=== PATIENT | male | born 1965 | race Caucasian/White ===

== ENCOUNTER 2020-12-30 11:21 | Emergency (ER) | payer OTHER ==
[~2020-12-30] VITALS: Ht 175.3 cm; Wt 100.7 kg
[~2020-12-30 11:21] MED LIST: CARDIZEM CD180 MG PO; FLOMAX PO; FLOMAX0.4 MG PO; HYDROXYZINE HCL25 M1 PO; NORCO 5-325 TA1 EACH PO; PRILOSEC 20 MG20 MG PO; SIMVASTATIN20 MG PO; ZOFRAN ODT4 MG PO; ZOFRAN4 MG PO
[2020-12-30] MEDS ORDERED: ZOCOR 20 MG TAB20 M1 PO (11:29)
[2020-12-30] MEDS ORDERED: FLECAINIDE ACET50 M2 PO (11:29)
[2020-12-30] MEDS ORDERED: SINGULAIR 10 MG10 MG PO (11:29)
[2020-12-30] MEDS ORDERED: KEFLEX250 MG PO (11:30)
[2020-12-30 14:34] LABS: HEMATOCRIT 45.2 % (42.0-52.0); HEMOGLOBIN 15.5 gm/dL (14.0-18.0); MCH 30.4 pg (26.0-34.0); MCHC 34.2 g/dL (28.0-37.0); MCV 88.7 fL (80.0-100.0); MPV 7.3 fl. (7.2-11.1); NUCLEATED RBCS 0 /100WBC; PLATELET COUNT* 178 thou/uL (150-400); RDW-CV 14.3 % (10.5-14.5); WBC 7.1 thou/uL (4.0-11.0)
[2020-12-30 14:42] LABS: CALCIUM 9.1 mg/dL (8.5-10.1)
[2020-12-30 14:47] LABS: ALBUMIN 3.1 g/dL (3.4-5.0); TOTAL BILIRUBIN 0.5 mg/dL (<0.1-1.0); TOTAL PROTEIN 8.4 g/dL (6.4-8.2)
[2020-12-30 15:23] LABS: ABSOLUTE LYMPHOCYTES 0.4 thou/uL (0.8-5.3); ABSOLUTE MONOCYTES 0.1 thou/uL (0.0-1.2); ABSOLUTE NEUTROPHILS 6.5 thou/uL (1.6-8.1)
[2020-12-30 15:24] LABS: PLATELET ESTIMATE ADEQUATE
[2020-12-30] MEDS ORDERED: PREDNISONE 20 M20 MG PO (15:30)
[2020-12-30] MEDS ORDERED: IPRAT-ALBUT 0.5-3 ML INH (15:30)
[2020-12-30] MEDS ORDERED: DOXYCYCLINE 10100 MG PO (15:30)
[2020-12-30] MEDS ORDERED: PROAIR HFA8.5 GM INH (15:30)
[2020-12-30 15:45] VITALS: BP 131/70
[2020-12-30] MEDS ORDERED: ONDANSETRON HCL4 M2 PO (16:21)
--- NOTE | 2020-12-31 10:56 | EKG ---
[place] [address] ELECTROCARDIOGRAM REPORT Name: SOFÍA UREÑA Room: [facility]#: [id number] Admission: 12/30/20 Attend Phys: Discharge: 12/30/20 Date of : 65 Date of Service: 12/30/20 1514 Report #: [id number] THIS REPORT FOR: //name// [facility] ED Test Date: 2020-12-30 Test Time: 15:14:53 Pat Name: SOFÍA UREÑA Department: Room: Gender: Special Education Professional: [facility] : 1965 Requested By: Arik Purdy Order Number: [id number] MD: Triston Adams Measurements Intervals [place] Rate: 108 P: 52 IL: 145 QRS: 6 QRSD: 92 T: 52 QT: 326 QTc: 437 Interpretive Statements Sinus tachycardia Abnormal R-wave progression, early transition No previous ECG available for comparison Electronically Signed On 12-31-2020 10:56:09 CDT by Triston Adams [email or web address] <ELECTRONICALLY SIGNED> By: Triston Adams MD, [facility] 12/31/20 1056 1514 1514 Triston Adams MD, FAC /EPI
== END 2020-12-30 15:46 | disposition home or self-care (01) ==
LOC: M.ERS 11:21
PROVIDERS: Physician Assistant
DX: U07.1 COVID-19 (principal); J12.89 Other viral pneumonia; I10 Essential (primary) hypertension; K21.9 Gastro-esophageal reflux disease without esophagitis; Z87.442 Personal history of urinary calculi; Z79.899 Other long term (current) drug therapy

== ENCOUNTER 2021-01-01 03:58 | Inpatient (IN) | payer OTHER ==
[~2021-01-01] VITALS: Ht 175.3 cm; Wt 97.1 kg
[~2021-01-01 03:58] MED LIST changes: +DOXYCYCLINE 10100 MG PO; +FLECAINIDE ACET50 M2 PO; +IPRAT-ALBUT 0.5-3 ML INH; +KEFLEX250 MG PO; +ONDANSETRON HCL4 M2 PO; +PREDNISONE 20 M20 MG PO; +PROAIR HFA8.5 GM INH; +SINGULAIR 10 MG10 MG PO; +ZOCOR 20 MG TAB20 M1 PO
[2021-01-01 04:09] VITALS: BP 144/89
[2021-01-01 04:58] LABS: ABSOLUTE MONOCYTES 0.8 thou/uL (0.0-1.2); ABSOLUTE NEUTROPHILS 9.9 thou/uL (1.6-8.1); BASOPHILS 0.2 %; HEMATOCRIT 42.9 % (42.0-52.0); HEMOGLOBIN 14.5 gm/dL (14.0-18.0); LYMPHOCYTES 8.9 %; MCH 29.7 pg (26.0-34.0); MCHC 33.9 g/dL (28.0-37.0); MCV 87.5 fL (80.0-100.0); MONOCYTES 6.6 %; MPV 7.1 fl. (7.2-11.1); NUCLEATED RBCS 0 /100WBC; POLYS 84.3 %; RDW-CV 14.2 % (10.5-14.5); WBC 11.7 thou/uL (4.0-11.0)
[2021-01-01 05:05] LABS: PLATELET COUNT* 269 thou/uL (150-400)
[2021-01-01 05:08] LABS: CALCIUM 9.4 mg/dL (8.5-10.1); CREATININE 1.3 mg/dL (0.6-1.3); POTASSIUM 3.8 mmol/L (3.5-5.1)
[2021-01-01 05:19] LABS: ALBUMIN 3.1 g/dL (3.4-5.0); MAGNESIUM 2.6 mg/dL (1.8-2.4); TOTAL BILIRUBIN 0.5 mg/dL (<0.1-1.0); TOTAL PROTEIN 8.1 g/dL (6.4-8.2)
[2021-01-01 09:28] VITALS: BP 121/80
[2021-01-01 13:37] VITALS: BP 141/74
[2021-01-01 17:40] VITALS: BP 126/84
[2021-01-01 18:14] VITALS: BP 126/84
--- NOTE | 2021-01-01 18:30 | NUR ---
er admit to rm 106 via cart to bed sba patient settled in bed patient oriented to rm and call light patient denies pain
[2021-01-01 20:00] VITALS: BP 135/84
[2021-01-01] MEDS ORDERED: CENTRUM SILVER1 EAC5 PO (21:11)
[2021-01-01] MEDS ORDERED: ADULT ASPIRIN R81 MG PO (21:12)
[2021-01-01] MEDS ORDERED: PROTONIX40 M4 PO (21:13)
[2021-01-01] MEDS ORDERED: ZESTRIL10 MG PO (21:14)
[2021-01-01] MEDS ORDERED: DILTIAZEM ER180 M2 PO (21:15)
[2021-01-02 00:33] VITALS: BP 119/69
[2021-01-02 04:26] VITALS: BP 116/57
--- NOTE | 2021-01-02 05:56 | NUR ---
ASSUMED CARE OF PT AFTER REPORT AT 1930. PT A&OX4. VSS. ADMISSION HISTORY & PHYSICAL ASSESSMENT COMPLETED AND CHARTED. ORIENTED TO ROOM & CALL LIGHT. PT ON NC 11L. PT TRACING SR/ST ON TELE. PT UPSTANDBY. PT COMPLAINED OF NAUSEA-MED GIVEN PER MAR. CALL LIGHT WITHIN REACH.
[2021-01-02 06:59] LABS: HEMATOCRIT 38.5 % (42.0-52.0); HEMOGLOBIN 13.4 gm/dL (14.0-18.0); MCH 30.5 pg (26.0-34.0); MCHC 34.9 g/dL (28.0-37.0); MCV 87.5 fL (80.0-100.0); MPV 7.1 fl. (7.2-11.1); RBC 4.4 mil/uL (4.50-6.00); RDW-CV 14.4 % (10.5-14.5); WBC 10.6 thou/uL (4.0-11.0)
[2021-01-02 07:13] LABS: CALCIUM 8.9 mg/dL (8.5-10.1); POTASSIUM 4.2 mmol/L (3.5-5.1)
[2021-01-02 08:00] VITALS: BP 133/85
--- NOTE | 2021-01-02 09:57 | EKG ---
[place] [address] ELECTROCARDIOGRAM REPORT Name: SOFÍA UREÑA Room: [address] ADM IN .R.#: [id number] Admission: 01/01/21 Attend Phys: Irma Be, Discharge: Date of : 65 Date of Service: 01/01/21 0421 Report #: [id number] THIS REPORT FOR: //name// [facility] ED Test Date: 2021-01-01 Test Time: 04:21:14 Pat Name: SOFÍA UREÑA Department: Room: [facility] Gender: M Management Liaison: MR : 1965 Requested By: Julianne Fung Order Number: [id number] MD: Sofía Lindquist Measurements Intervals [place] Rate: 115 P: 51 AL: 146 QRS: -6 QRSD: 93 T: 67 QT: 306 QTc: 424 Interpretive Statements Sinus tachycardia Abnormal R-wave progression, early transition Inferior infarct, old Compared to ECG 12/30/2020 15:14:53 no change Electronically Signed On 01-02-2021 9:56:52 CDT by Sofía Lindquist [email or web address] <ELECTRONICALLY SIGNED> By: Sofía Lindquist MD, [facility] 01/02/21 0956 042 0421 Sofía Lindquist MD, [facility] /EPI
[2021-01-02 13:03] VITALS: BP 110/76
[2021-01-02 16:00] VITALS: BP 116/81
[2021-01-02 20:00] VITALS: BP 120/75
[2021-01-03] VITALS (7 sets, daily range): BP systolic 96–144; BP diastolic 63–88
--- NOTE | 2021-01-03 05:23 | NUR ---
ASSUMED CARE OF PT AFTER REPORT AT 1930. PT A&OX4. VSS. PHYSICAL ASSESSMENT COMPLETED AND CHARTED. PT ON HFNC 10L. PT TRACING SR/ST ON TELE. PT UPSTANDBY TO BSC. PT DENIES ANY PAIN. PT ABLE TO SLEEP WELL ON BED. FALL PRECAUTIONS IN PLACE. CALL LIGHT WITHIN REACH.
[2021-01-03 05:37] LABS: ABSOLUTE LYMPHOCYTES 0.7 thou/uL (0.8-5.3); ABSOLUTE MONOCYTES 0.3 thou/uL (0.0-1.2); ABSOLUTE NEUTROPHILS 4.1 thou/uL (1.6-8.1); BASOPHILS 0.3 %; HEMATOCRIT 38.6 % (42.0-52.0); HEMOGLOBIN 12.9 gm/dL (14.0-18.0); LYMPHOCYTES 14.1 %; MCH 29.3 pg (26.0-34.0); MCHC 33.3 g/dL (28.0-37.0); MONOCYTES 5.9 %; MPV 7.4 fl. (7.2-11.1); NUCLEATED RBCS 0 /100WBC; PLATELET COUNT* 221 thou/uL (150-400); POLYS 79.7 %; RBC 4.39 mil/uL (4.50-6.00); RDW-CV 14.3 % (10.5-14.5); WBC 5.2 thou/uL (4.0-11.0)
[2021-01-03 06:14] LABS: ALBUMIN 2.3 g/dL (3.4-5.0); CREATININE 0.8 mg/dL (0.6-1.3); POTASSIUM 4.1 mmol/L (3.5-5.1); TOTAL BILIRUBIN 0.4 mg/dL (<0.1-1.0); TOTAL PROTEIN 6.8 g/dL (6.4-8.2)
--- NOTE | 2021-01-03 15:10 | NUR ---
CM ASSESSMENT: PT COVID POSITIVE AND CURRENTLY UNDER ENHANCED PRECAUTIONS. PT A&O, INDEPENDENT WITH ADL'S, ACTIVE AND WORKS OUTSIDE THE HOME. PT RESIDES AT HOME WITH SPOUSE. PT USES 0 DME. PT HAS 0 HX OF HH OR SNF. PT CURRENTLY ON 10L O2, AND DID NOT HAVE HOME OXYGEN PRIOR TO ADMIT. CM WILL REMAIN AVAILABLE TO ASSIST AND FOLLOW NEEDED.
--- NOTE | 2021-01-03 19:00 | NUR ---
Pt inquired about convalescent plasma atend of shift; states he did not fully understand what Dr. Hernandez said to him regarding plasma (risks, benefits, etc.). After further discussion, pt has decided to receive convalescent plasma as ordered; blood bank notified. VSS. Abd round, distended. Surgery consult called per Dr. Hernandez's order; Dr. Roman returned call and states he will see pt. New IVs placed per tasneem Hartley RN. O2 remains at 10L per [facility]; sats 88-92%. Will continue to monitor.
[2021-01-04 00:15] VITALS: BP 130/85
[2021-01-04 04:24] LABS: HEMATOCRIT 39.9 % (42.0-52.0); HEMOGLOBIN 13.5 gm/dL (14.0-18.0); MCH 29.6 pg (26.0-34.0); MCHC 33.7 g/dL (28.0-37.0); MCV 87.6 fL (80.0-100.0); MPV 7.3 fl. (7.2-11.1); NUCLEATED RBCS 0 /100WBC; PLATELET COUNT* 257 thou/uL (150-400); RBC 4.56 mil/uL (4.50-6.00); RDW-CV 14.1 % (10.5-14.5); WBC 5.1 thou/uL (4.0-11.0)
[2021-01-04 04:26] LABS: ALBUMIN 2.6 g/dL (3.4-5.0); CALCIUM 9.1 mg/dL (8.5-10.1); CREATININE 0.9 mg/dL (0.6-1.3); PHOSPHORUS* 4.8 mg/dL (2.5-4.9); POTASSIUM 4.3 mmol/L (3.5-5.1); TOTAL BILIRUBIN 0.3 mg/dL (<0.1-1.0); TOTAL PROTEIN 7.2 g/dL (6.4-8.2)
--- NOTE | 2021-01-04 04:48 | NUR ---
ASSUMED CARE OF PT AFTER REPORT AT 1930. PT A&OX4. VSS. PHYSICAL ASSESSMENT COMPLETED AND CHARTED. PT ON O2 HFNC 9L. PT TRACING SR/ST ON TELE. PT UPSTANDBY TO BSC. PT DENIES ANY PAIN. TRANSFUSED 1 UNIT OF PLASMA. MRSA SWAB SENT TO LAB. PT ABLE TO SLEEP WELL ON BED. FALL PRECAUTIONS IN PLACE. CALL LIGHT WITHNI REACH.
[2021-01-04 04:55] VITALS: BP 121/66
[2021-01-04 06:53] LABS: ABSOLUTE LYMPHOCYTES 0.1 thou/uL (0.8-5.3); ABSOLUTE MONOCYTES 0.1 thou/uL (0.0-1.2); ABSOLUTE NEUTROPHILS 4.9 thou/uL (1.6-8.1); PLATELET ESTIMATE ADEQUATE
[2021-01-04 08:00] VITALS: BP 123/72
[2021-01-04 17:04] VITALS: BP 139/66
[2021-01-04 18:47] VITALS: BP 110/77
[2021-01-04 19:50] VITALS: BP 125/80
--- NOTE | 2021-01-04 23:41 | NUR ---
ASSUMED CARE OF PT AT 1900. PT IS ALERT AND ORIENTED. VSS. PERRLA. NO COMPLAINTS OF PAIN. PT IS ON 10 LITERS OF O2. PT IS IN SINUS RYTHM ON THE TELEMETRY. PT IS RESTING COMFORTABLY IN BED. RESPIRATIONS ARE EVEN AND NONLABORED. WILL CONTINUE TO MONITOR PT.
[2021-01-05 00:41] VITALS: BP 103/81; BP 122/71
[2021-01-05 05:32] VITALS: BP 113/59
[2021-01-05 07:01] LABS: ABSOLUTE LYMPHOCYTES 1.3 thou/uL (0.8-5.3); ABSOLUTE MONOCYTES 0.5 thou/uL (0.0-1.2); ABSOLUTE NEUTROPHILS 5.3 thou/uL (1.6-8.1); BASOPHILS 0.2 %; EOSINOPHILS 0.3 %; HEMATOCRIT 41.1 % (42.0-52.0); HEMOGLOBIN 13.8 gm/dL (14.0-18.0); LYMPHOCYTES 18.2 %; MCH 29.8 pg (26.0-34.0); MCHC 33.6 g/dL (28.0-37.0); MCV 88.6 fL (80.0-100.0); MONOCYTES 6.5 %; MPV 7.2 fl. (7.2-11.1); NUCLEATED RBCS 0 /100WBC; PLATELET COUNT* 324 thou/uL (150-400); POLYS 74.8 %; RBC 4.64 mil/uL (4.50-6.00); RDW-CV 14.3 % (10.5-14.5)
[2021-01-05 07:20] LABS: ALBUMIN 2.9 g/dL (3.4-5.0); POTASSIUM 3.7 mmol/L (3.5-5.1); TOTAL BILIRUBIN 0.4 mg/dL (<0.1-1.0); TOTAL PROTEIN 7.2 g/dL (6.4-8.2)
[2021-01-05 09:39] VITALS: BP 103/61
[2021-01-05 12:00] VITALS: BP 108/64
--- NOTE | 2021-01-05 14:49 | NUR ---
PLAN OF CARE: PHYSICIAN INFORMS OF PLAN FOR THE PT TO REMAIN INPT AT THIS TIME. PT COVID POSITIVE AND REMAINS UNDER ENHANCED PRECAUTIONS. PT REMAINS ON 10L O2, AND MAY NEED HOME O2 AT D/C. CM WILL REMAIN AVAILABLE TO ASSIST AND FOLLOW NEEDED.
[2021-01-05 16:17] VITALS: BP 109/67
--- NOTE | 2021-01-05 18:26 | NUR ---
PT A&OX4, HR SR-ST, ON 10 L NC, PT HAS NO C/O PAIN OR DISCOMFORT AND CONTINUES IV ABT.
[2021-01-05 19:50] VITALS: BP 126/63
--- NOTE | 2021-01-05 22:32 | CON ---
[address] [address] CONSULTATION Name: SOFÍA UREÑA Room: [address] IN .R.#: [id number] Admission: 01/01/21 Attend Phys: Irma Be MD Discharge: Date of : 65 Report #: [id number] THIS REPORT FOR: cc: Robert Fernando Bradley L. DO Pervez, Adeel MD ~ DATE OF CONSULTATION: 01/03/2021 REQUESTING PHYSICIAN: Gerry Lowry DO INDICATION FOR CONSULTATION: Acute hypoxemic respiratory failure secondary to COVID-19. HISTORY OF PRESENT ILLNESS: A 55-year-old gentleman with past medical history is as mentioned below. There is no known history of smoking, cardiac or respiratory disease. He does have GERD. He also has a body mass index elevated to 32. He has not been vaccinated for COVID-19. The patient was now diagnosed with COVID-19 on 12/24. He did come to the Emergency Room earlier and at that time was sent home for outpatient followup. He continued to decline and therefore, eventually was admitted on 01/01. He did take a veterinary ivermectin prior to arrival. He currently is requiring around 10 liters of oxygen to maintain O2 saturation in the low 90s. His chest x-ray does show worsening infiltrates. The patient states that his shortness of breath is about the same as when he initially arrived, but he does continue to have significant shortness of breath at rest. He does have a cough. There is not much sputum. He does not have upper respiratory complaints. There is only minimal swelling of lower extremities. There is no calf pain. The patient answers to the negative for 12 questions for review of systems except as described above. He has had some distention of his abdomen. PAST MEDICAL HISTORY: Obesity, hypertension, gastroesophageal reflux disease, hyperlipidemia, and kidney stones. The patient has used flecainide in the past. It is not known to me why the patient received flecainide. SOCIAL HISTORY: Lifetime nonsmoker. No known history of heavy alcohol use or illegal drug use. CURRENT MEDICATIONS: List in [employer] reviewed. HOME MEDICATIONS: List also in [employer] reviewed. Amongst other medications it is noted that the patient received prednisone for a few days as well as a prescription for doxycycline. During the last ER visit, the patient in the past has used flecainide. It is not known to me why he was prescribed flecainide. FAMILY HISTORY: There [place] [address] CONSULTATION Name: SOFÍA UREÑA Room: [address]#: [id number] Admission: 01/01/21 Attend Phys: Irma Be MD Discharge: Date of : 65 Report #: [id number] PHYSICAL EXAMINATION: GENERAL: Alert, awake, and oriented, does not appear in any distress at this time. He is hypoxemic. He is requiring 10 liters of oxygen to maintain O2 saturation in the low 90s. He is tachycardic. VITAL SIGNS: Heart rate is around 113, blood pressure 123/86. He is saturating 92%. He is afebrile with a temperature of 36.7. HEENT: Head is normocephalic and atraumatic. NECK: Does not show raised JVP asymmetry, mass, or lymph nodes. CHEST: Symmetrical expansion on inspection and palpation. On auscultation, breath sounds are bilaterally equal, but decreased. No added sounds. HEART: Regular. There is no murmur. ABDOMEN: Distended, but nontender. EXTREMITIES: Lower extremities show no edema, no calf tenderness. SKIN: Dry and intact. NEUROLOGIC: Moves all extremities bilaterally equally and spontaneously with no focal deficit identified. IMAGING STUDIES: The patient's chest x-ray was reviewed. There are worsening infiltrates on chest x-rays when seen serially. Also, there are markedly distended loops of bowel, which are incidentally identified. His D-dimer was not elevated. Lab work in [employer] reviewed. His COVID-19 antigen is positive. ASSESSMENT AND PLAN: 1. Acute hypoxemic respiratory failure secondary to COVID-19. Continue to titrate oxygen. Recommend avoiding supine position while asleep. If it is feasible for him, then may prone. Continue out of bed to chair. 2. COVID-19. His bowel loops are significantly distended and I would like to get this investigated further. Pending this, I would switch his dexamethasone over to IV as I am not certain if oral dexamethasone is adequately being observed. We will give him an additional dose of 10 mg of dexamethasone IV once as well. For now, we will continue current dose of dexamethasone at 6 mg. If he becomes more hypoxemic, then certainly we can increase the dose. He is on remdesivir. I agree with the same. Follow LFTs. He received Actemra as well. I discussed with him risks and benefits of administration of convalescent plasma. He stated that he will discuss with his . I did leave an order to go ahead and transfuse with one unit if he does agree and in that case, I may consider a second unit tomorrow as well. 3. Abdominal distention/distended loops of bowel. These are markedly abnormal on the x-ray of the chest. I ordered x-ray of the abdomen. We will go ahead and obtain a surgery opinion as well. The patient may have a severe ileus or intestinal obstruction. 4. Bronchospasm. Discussion regarding dexamethasone as above. He is also on nebulized bronchodilators. [place] [address] CONSULTATION Name: SOFÍA UREÑA Room: [address]#: [id number] Admission: 01/01/21 Attend Phys: Irma Be MD Discharge: Date of : 65 Report #: [id number] 5. Pulmonary infiltrates. Considering worsening infiltrates. I will go ahead and cover with a broad-spectrum antibiotic. We will do more cultures and serologies as well. I initially ordered Levaquin, but assisted over to ceftriaxone because I noticed he has received flecainide in the past. I will investigate further while he received flecainide at some point in the past. 6. Deep venous thrombosis prophylaxis. Continue Lovenox. I increased the dose to 40 b.i.d. 7. Gastrointestinal prophylaxis, on Protonix. 8. Clostridium difficile prophylaxis, on Lactinex. The patient is critically ill with acute hypoxemic respiratory failure secondary to COVID-19. Total time spent providing critical care to this patient today is 39 minutes. <ELECTRONICALLY SIGNED> By: Reggie Hernandez MD 01/05/21 2232 1601 [id number] nicol Savage
--- NOTE | 2021-01-06 00:16 | NUR ---
ASSUMED CARE OF PT AT 1900. PT IS ALERT AND ORIENTED. VSS. PERRLA. NO COMPLAINTS OF PAIN. PT IS ON 10 LITERS NASAL CANNULA. PT IS IN SINUS RYTHM ON THE TELEMETRY. PT IS RESTING COMFORTABLY IN BED. RESPIRATIONS ARE EVEN AND NONLABORED. WILL CONTINUE TO MONITOR PT.
[2021-01-06 00:30] VITALS: BP 110/66
[2021-01-06 04:29] VITALS: BP 114/60
[2021-01-06 05:43] LABS: ABSOLUTE BASOPHILS 0.1 thou/uL (0.0-0.2); ABSOLUTE LYMPHOCYTES 1.1 thou/uL (0.8-5.3); ABSOLUTE MONOCYTES 0.4 thou/uL (0.0-1.2); ABSOLUTE NEUTROPHILS 5.3 thou/uL (1.6-8.1); BASOPHILS 0.8 %; EOSINOPHILS 0.2 %; HEMATOCRIT 39.2 % (42.0-52.0); HEMOGLOBIN 13.2 gm/dL (14.0-18.0); LYMPHOCYTES 16.3 %; MCH 29.9 pg (26.0-34.0); MCHC 33.7 g/dL (28.0-37.0); MCV 88.9 fL (80.0-100.0); MONOCYTES 6.4 %; MPV 7.4 fl. (7.2-11.1); NUCLEATED RBCS 0 /100WBC; PLATELET COUNT* 277 thou/uL (150-400); POLYS 76.3 %; RBC 4.42 mil/uL (4.50-6.00); RDW-CV 13.9 % (10.5-14.5); WBC 6.9 thou/uL (4.0-11.0)
[2021-01-06 06:17] LABS: ALBUMIN 2.6 g/dL (3.4-5.0); CALCIUM 8.7 mg/dL (8.5-10.1); CREATININE 0.8 mg/dL (0.6-1.3); POTASSIUM 4.1 mmol/L (3.5-5.1); TOTAL BILIRUBIN 0.3 mg/dL (<0.1-1.0); TOTAL PROTEIN 6.6 g/dL (6.4-8.2)
--- NOTE | 2021-01-06 07:40 | NUR ---
CHANGE OF SHIFT REPORT GIVEN PATIENT SIITING UP IN RECLINER WATCHING TV ASSUMED PATIENT CARE
[2021-01-06 08:00] VITALS: BP 104/64
[2021-01-06 11:47] VITALS: BP 107/70
[2021-01-06 15:48] LABS: BE 2.9 mmol/L (-2 to +3); PCO2 VENOUS 52.6 mmHg (41.0-51.0); PO2 VENOUS 38.5 mmHg (35.0-45.0)
[2021-01-06 16:22] VITALS: BP 111/72
[2021-01-06 20:00] VITALS: BP 109/60
[2021-01-07 00:35] VITALS: BP 110/73
--- NOTE | 2021-01-07 04:19 | NUR ---
ASSUMED CARE OF PT AFTER REPORT AT 1930. PT A&OX4. VSS. PHYSICAL ASSESSMENT COMPLETED AND CHARTED. PT ON HFNC 7L. PT TRACING SR ON TELE. PT UPSTANDBY. PT DENIES ANY PAIN. DECREASED O2 TO 7L HFNC-O2 SAT AT 91-93%. RECOMMENDS TO SLEEP ON HIS SIDES. PT ABLE TO SLEEP WELL ON BED. FALL PRECAUTIONS IN PLACE. CALL LIGHT WITHIN REACH.
[2021-01-07 05:18] LABS: ALBUMIN 2.6 g/dL (3.4-5.0); CALCIUM 8.8 mg/dL (8.5-10.1); CREATININE 0.9 mg/dL (0.6-1.3); POTASSIUM 4.8 mmol/L (3.5-5.1); TOTAL BILIRUBIN 0.4 mg/dL (<0.1-1.0); TOTAL PROTEIN 6.3 g/dL (6.4-8.2)
[2021-01-07 06:02] VITALS: BP 132/81
[2021-01-07 06:34] LABS: ABSOLUTE BASOPHILS 0.1 thou/uL (0.0-0.2); ABSOLUTE MONOCYTES 0.3 thou/uL (0.0-1.2); EOSINOPHILS 0.1 %; HEMOGLOBIN 13.1 gm/dL (14.0-18.0); MCV 88.9 fL (80.0-100.0); PLATELET COUNT* 258 thou/uL (150-400); WBC 13.3 thou/uL (4.0-11.0)
[2021-01-07 06:36] LABS: ABSOLUTE NEUTROPHILS 11.9 thou/uL (1.6-8.1); BASOPHILS 0.7 %; HEMATOCRIT 39.4 % (42.0-52.0); LYMPHOCYTES 7.3 %; MCH 29.5 pg (26.0-34.0); MCHC 33.2 g/dL (28.0-37.0); MPV 8.2 fl. (7.2-11.1); NUCLEATED RBCS 0 /100WBC; POLYS 89.9 %; RBC 4.43 mil/uL (4.50-6.00); RDW-CV 13.8 % (10.5-14.5)
[2021-01-07 08:00] VITALS: BP 100/59
[2021-01-07 12:12] VITALS: BP 124/72
[2021-01-07 15:59] VITALS: BP 116/75
--- NOTE | 2021-01-07 18:50 | NUR ---
RECEIVED REPORT AROUND 0715. ASSUMED CARE. VS AND ASSESSMENT CHARTED. IV INTACT. HEART MONITOR ATTACHED AT SR. MEDS GIVEN PER AUG. HOURLY ROUNDING PERFORMED. 5L NC. PT IN CHAIR NOW. NO PAIN THIS SHIFT. CALL LIGHT WITH IN REACH. WILL CONTINUE TO MONITOR.
[2021-01-07 20:00] VITALS: BP 98/63
[2021-01-08 00:27] VITALS: BP 106/52
[2021-01-08 04:26] VITALS: BP 118/73
--- NOTE | 2021-01-08 05:42 | NUR ---
ASSUMED CARE OF PT AFTER REPORT AT 1930. PT A&OX4. VSS. PHYSICAL ASSESSMENT COMPLETED AND CHARTED. PT ON O2 AT 3LNC. PT TRACING SR ON TELE. PT UPSTANDBY. PT DENIES ANY PAIN. PT ABLE TO SLEEP WELL ON BED. FALL PRECAUTIONS IN PLACE. CALL LIGHT WITHIN REACH.
[2021-01-08 08:00] VITALS: BP 107/53
[2021-01-08 12:58] VITALS: BP 111/67
[2021-01-08 16:12] VITALS: BP 113/75
--- NOTE | 2021-01-08 19:20 | NUR ---
RECEIVED REPORT AROUND 0715. ASSUMED CARE. VS AND ASSESSMENT CHARTED. IV INTACT. HEART MONITOR ATTACHED AT SR. PT UP IN CHAIR. 3L NC. MEDS GIVEN PER AUG. HOURLY ROUNDING PERFORMED. NO PAIN THIS SHIFT. POSSIBLE D/C TOMORROW. CALL LIGHT WITH IN REACH.
[2021-01-08 20:00] VITALS: BP 131/81
[2021-01-09 00:48] VITALS: BP 100/62
[2021-01-09 04:23] LABS: ABSOLUTE LYMPHOCYTES 1.4 thou/uL (0.8-5.3); ABSOLUTE MONOCYTES 0.4 thou/uL (0.0-1.2); ABSOLUTE NEUTROPHILS 5.9 thou/uL (1.6-8.1); BASOPHILS 0.1 %; EOSINOPHILS 0.1 %; HEMATOCRIT 37.9 % (42.0-52.0); LYMPHOCYTES 18.2 %; MCH 30.5 pg (26.0-34.0); MCHC 34.4 g/dL (28.0-37.0); MCV 88.7 fL (80.0-100.0); MONOCYTES 5.5 %; MPV 7.3 fl. (7.2-11.1); NUCLEATED RBCS 0 /100WBC; PLATELET COUNT* 219 thou/uL (150-400); POLYS 76.1 %; RBC 4.27 mil/uL (4.50-6.00); RDW-CV 14.2 % (10.5-14.5); WBC 7.8 thou/uL (4.0-11.0)
[2021-01-09 04:59] LABS: ALBUMIN 2.5 g/dL (3.4-5.0); CALCIUM 8.3 mg/dL (8.5-10.1); CREATININE 0.8 mg/dL (0.6-1.3); POTASSIUM 4.2 mmol/L (3.5-5.1); TOTAL BILIRUBIN 0.4 mg/dL (<0.1-1.0); TOTAL PROTEIN 5.8 g/dL (6.4-8.2)
[2021-01-09 06:03] VITALS: BP 108/67
--- NOTE | 2021-01-09 06:56 | NUR ---
ASSUMED CARE OF PT AFTER REPORT AT 1930. PT A&OX4. VSS. PHYSICAL ASSESSMENT COMPLETED AND CHARTED. PT ON O2 AT 2L NC. PT TRACING SR ON TELE. PT UPSTANDBY. PT DENIES ANY PAIN. PT ABLE TO SLEEP WELL ON BED. FALL PRECAUTIONS IN PLACE. CALL LIGHT WITHIN REACH.
[2021-01-09 08:00] VITALS: BP 114/72
[2021-01-09 11:36] VITALS: BP 126/83
--- NOTE | 2021-01-09 12:34 | NUR ---
Nutrition: Pt admitted with COVID. Assessed for LOS. Wt: 214#. Pureed diet. RN stated pt is eating meals well. Meds: insulin, Remdesivir, zinc, thiamine, convalescant plasma. Alb 2.5, prealb 31.4. Appears nutritionally stable at this time. Low risk.
--- NOTE | 2021-01-09 14:50 | NUR ---
Anticipate dc tomorrow. Covid positive. Pt weaned down to 2L, continue to wean. Pt will need ex ox at dc to determine home o2 needs.
[2021-01-09 16:15] VITALS: BP 125/80
--- NOTE | 2021-01-09 18:02 | NUR ---
RECEIVED REPORT AROUND 0715. ASSUMED CARE. VS AND ASSESSMENT CHARTED. IV INTACT. HEART MONITOR ATTACHED AT SR. PT UP ADLIB. NO O2. ONLY NEEDED WHEN EATING BECAUSE PT IS A MOUTH BREATHER. UP IN CHAIR CURRENTLY. MEDS GIVEN PER AUG. HOURLY ROUNDING PERFORMED. ISOLATION INTACT. CALL LIGHT WITH IN REACH. WILL CONTINUE TO MONITOR.
[2021-01-09 20:15] VITALS: BP 120/76
[2021-01-10 00:48] VITALS: BP 124/59
[2021-01-10 04:34] LABS: PCO2 VENOUS 36.5 mmHg (41.0-51.0); PO2 VENOUS 156.7 mmHg (35.0-45.0)
[2021-01-10 04:35] LABS: BE 3.9 mmol/L (-2 to +3)
[2021-01-10 04:47] VITALS: BP 121/75
--- NOTE | 2021-01-10 05:05 | NUR ---
PT SLEPT MOST OF SHIFT. ASSESSMENT DOCUMENTED, MEDS GIVEN PER E-MAR. IV PATENT. NO REPORTS OF PAIN. PT ON ROOM AIR AND UP AD MIRNA IN ROOM. PT ABLE TO MAKE NEEDS KNOWN, WILL CONITNUE WITH PLAN OF CARE.
[2021-01-10 08:00] VITALS: BP 116/62
--- NOTE | 2021-01-10 13:00 | NUR ---
Pt discharging to home today, no needs.
[2021-01-10] MEDS ORDERED: DEXAMETHASONE6 MG PO (13:07)
[2021-01-10 13:21] VITALS: BP 116/62
--- NOTE | 2021-01-10 16:11 | NUR ---
RECEIVED REPORT AROUND 0715. ASSUMED CARE. VS AND ASSESSMENT CHARTED. IV INTACT THIS AM. HEART MONITOR ATTACHED AT SR THIS AM. PT UP ADLIB. MEDS GIVEN PER AUG. HOURLY ROUNDING PERFORMED. ISOLATION INTACT. DISCHARGE ORDERS RECEIVED. IV TAKEN OUT. HEART MONITOR OFF. DISCHARGE PACKET GIVEN TO PT. COMMUNICATED UNDERSTANDING. CASE MANAGEMENT PAPERWORK GIVEN TO PT. PT LEFT VIA WHEEL CHAIR WITH ALL BELONGINGS AND NURSING STAFF OFF UNIT AT 1530.
== END 2021-01-10 15:55 | disposition home or self-care (01) | DRG 177 ==
LOC: M.ERS 03:58 → M.ORTHSURG 06:16 → M.TBA-ER 06:16 → M.ORTHSURG 19:14
PROVIDERS: Emergency Medicine; Family Medicine; Internal Medicine; ADMIT Internal Medicine; ATTEND Internal Medicine
PROC: XW033E5 Introduction of Remdesivir Anti-infective into Peripheral Vein, Percutaneous Approach, New Technology Group 5 (ICD-10-PCS; principal; 2021-01-01)
PROC: 5A0935A Assistance with Respiratory Ventilation, Less than 24 Consecutive Hours, High Flow/Velocity Cannula (ICD-10-PCS; principal; 2021-01-01)
PROC: 5A0935A Assistance with Respiratory Ventilation, Less than 24 Consecutive Hours, High Flow/Velocity Cannula (ICD-10-PCS; 2021-01-02)
PROC: XW13325 Transfusion of Convalescent Plasma (Nonautologous) into Peripheral Vein, Percutaneous Approach, New Technology Group 5 (ICD-10-PCS; 2021-01-03)
PROC: 5A0945A Assistance with Respiratory Ventilation, 24-96 Consecutive Hours, High Flow/Velocity Cannula (ICD-10-PCS; 2021-01-03)
PROC: B54NZZA Ultrasonography of Left Upper Extremity Veins, Guidance (ICD-10-PCS; 2021-01-03)
PROC: 05HF33Z Insertion of Infusion Device into Left Cephalic Vein, Percutaneous Approach (ICD-10-PCS; 2021-01-03)
PROC: 5A0935A Assistance with Respiratory Ventilation, Less than 24 Consecutive Hours, High Flow/Velocity Cannula (ICD-10-PCS; 2021-01-05)
PROC: 5A0935A Assistance with Respiratory Ventilation, Less than 24 Consecutive Hours, High Flow/Velocity Cannula (ICD-10-PCS; 2021-01-06)
PROC: 5A0935A Assistance with Respiratory Ventilation, Less than 24 Consecutive Hours, High Flow/Velocity Cannula (ICD-10-PCS; 2021-01-07)
PROC: 5A0935A Assistance with Respiratory Ventilation, Less than 24 Consecutive Hours, High Flow/Velocity Cannula (ICD-10-PCS; 2021-01-08)
DX: U07.1 COVID-19 (principal); J12.82 Pneumonia due to coronavirus disease 2019; J96.01 Acute respiratory failure with hypoxia; K56.7 Ileus, unspecified; I10 Essential (primary) hypertension; E78.5 Hyperlipidemia, unspecified; K21.9 Gastro-esophageal reflux disease without esophagitis; D64.9 Anemia, unspecified; E66.9 Obesity, unspecified; J98.01 Acute bronchospasm; E78.00 Pure hypercholesterolemia, unspecified; Z79.899 Other long term (current) drug therapy; Z68.31 Body mass index [BMI] 31.0-31.9, adult